=== PATIENT | male | born 1945 | race African-American/Black ===

== ENCOUNTER 2017-02-15 02:48 | Inpatient (IN) ==
[2017-02-15 04:00] LABS: Basophils % 0.2 % (0.0-0.8); Eosinophils % 0.7 % (0.00-10.9); Hemoglobin 9.5 GM/DL (14.0-18.0); Immature Granulocytes % 4.2 %; Immature Granulocytes Absolute 0.17 #; Mean Corpuscular HGB Conc 36.5 GM/DL (32-36); Mean Corpuscular Hemoglobin 26 PG (27-34); Mean Corpuscular Volume 71.2 FL (87-102); Mean Platelet Volume 9.6 FL (9.6-12.0); Monocytes # 0.5 10*3/uL (0.11-0.8); Monocytes % 11.8 % (1.7-12.7); Neutrophils # 1.4 10*3/uL (1.4-7.4); Neutrophils % 34.1 % (38.7-73.9); Platelet Count 114 T/CUMM (130-400); Red Blood Count 3.65 MC/CUMM (3.8-5.5); Red Cell Distribution Width 14.6 % (9.3-17.3); White Blood Count 4.1 T/CUMM (4-12)
[2017-02-15 04:11] LABS: INR 1.7; PT Patient Result 17.4 SECS
[2017-02-15 04:24] LABS: Alanine Aminotransferase 31 U/L (16-61); Albumin 2.8 G/DL (3.4-5.0); Alkaline Phosphatase 173 U/L (45-117); Amylase 188 U/L (25-115); Aspartate Amino Transferase 42 U/L (0-37); Blood Urea Nitrogen 47 MG/DL (7-18); Calcium 8.3 MG/DL (8.5-10.1); Glucose 90 MG/DL (74-106); Osmolality,Calculated 249.5 MOS/KG (273-304); Total Protein 6.4 G/DL (6.4-8.3); Troponin I Only < 0.015 NG/ML (0.00-0.045)
[2017-02-15 04:28] LABS: Sodium 118 MMOL/L (136-145)
[2017-02-15 04:57] LABS: Band Neutrophils 1 % (0-10); Eosinophils 3 % (0-10); Lymphocytes 57 % (20-55); Platelet Estimate Decreased; Segmented Neutrophils 32 % (50-85); Total Cells Counted 100
[2017-02-15 04:58] LABS: Microcytosis 2+
[2017-02-15 05:01] LABS: Partial Thromboplastin Time 41.7 SECS (0-40)
[2017-02-15] MEDS ORDERED: CALCIUM CHLORIDE 1,000 MG/10 ML SYRINGE IV ONE ×2 (07:18→07:27)
[2017-02-15] MEDS ORDERED: POTASSIUM CHLORIDE 20 MEQ TABLET PO ONE ×4 (07:18→12:02)
[2017-02-15] MEDS ORDERED: SODIUM CHLORIDE 0.9% 1,000 ML IV SCH (07:18)
[2017-02-15 08:08] LABS: Folate 22.9 NG/ML (5.4-24.0)
[2017-02-15 08:28] LABS: Free T4 (Free Thyroxine) 1.76 NG/DL (0.76-1.46); Magnesium 1.8 MG/DL (1.8-2.4)
[2017-02-15 08:30] LABS: Lactic Acid 1.4 MMOL/L (0.4-2.0)
[2017-02-15 08:31] LABS: Hemoglobin 9.6 GM/DL (14.0-18.0)
[2017-02-15 08:42] LABS: % Iron Saturation 38.5 % (18-50)
[2017-02-15 08:57] LABS: Magnesium 1.7 MG/DL (1.8-2.4); Risk Ratio 2.55; VLDL CHOLESTEROL 17.8 MG/DL
[2017-02-15] MEDS ORDERED: PANTOPRAZOLE 40 MG VIAL IV ONE (09:15)
[2017-02-15] MEDS ORDERED: CARVEDILOL 3.125 MG TABLET ONE (09:15)
[2017-02-15] MEDS ORDERED: DOCUSATE SODIUM 100 MG CAPSULE ONE (09:15)
[2017-02-15] MEDS: PANTOPRAZOLE 40 MG VIAL IV SCH (09:20)
[2017-02-15] MEDS: CARVEDILOL 3.125 MG TABLET PO SCH ×2 (09:20→21:15)
[2017-02-15] MEDS: ISOSORBIDE MONONITRATE 60 MG TABLET PO SCH (09:20)
[2017-02-15] MEDS: DOCUSATE SODIUM 100 MG CAPSULE PO SCH ×2 (09:20→21:15)
[2017-02-15] MEDS: PRAVASTATIN 40 MG TABLET PO SCH (09:30)
[2017-02-15] MEDS: LEVOTHYROXINE 75 MCG TABLET PO SCH (09:30)
[2017-02-15 10:27] LABS: Apearance,Urine CLEAR (Clear); Bacteria,Urine Occasional /HPF (Few); Bilirubin,Urine Negative (Negative); Blood, Urine Small mg/dL (Negative); Glucose,Urine (UA) Negative (Negative); Ketones,Urine Negative (Negative); Mucus,Urine Occasional /LPF (Occasional); Nitrite,Urine Negative (Negative); Protein,Urine Negative; RBC,Urine 8 /HPF (0-4); Urine Color Straw (Yellow); Urine Specific Gravity 1.004 (1.001-1.035); Urine Urobilinogen < 2.0 EU/DL (0.2-1.0); WBC,Urine 1 /HPF (0-6)
[2017-02-15] MEDS ORDERED: MAGNESIUM SULF RIDER 4 GM in PREMIX 1 EACH IV ONE (18:20)
[2017-02-15] MEDS ORDERED: FUROSEMIDE 20 MG/2 ML VIAL IV ONE (18:20)
[2017-02-15 20:10] LABS: Hematocrit 28.6 VOL% (42.0-52.0); Hemoglobin 10.4 GM/DL (14.0-18.0)
[2017-02-16 04:47] LABS: Basophils % 0.4 % (0.0-0.8); Eosinophils % 0.2 % (0.00-10.9); Hematocrit 29.7 VOL% (42.0-52.0); Hemoglobin 10.5 GM/DL (14.0-18.0); Immature Granulocytes % 5.3 %; Immature Granulocytes Absolute 0.28 #; Lymphocytes # 1.7 10*3/uL (1.4-4.0); Lymphocytes % 31.9 % (21.2-54.2); Mean Corpuscular HGB Conc 35.4 GM/DL (32-36); Mean Corpuscular Hemoglobin 26 PG (27-34); Mean Platelet Volume 9.6 FL (9.6-12.0); Monocytes # 0.6 10*3/uL (0.11-0.8); NRBC # 0.02 10*3/uL; Neutrophils # 2.6 10*3/uL (1.4-7.4); Neutrophils % 50.2 % (38.7-73.9); Platelet Count 137 T/CUMM (130-400); Red Blood Count 4.07 MC/CUMM (3.8-5.5); White Blood Count 5.3 T/CUMM (4-12)
[2017-02-16 05:18] LABS: Calcium 9.2 MG/DL (8.5-10.1); Magnesium 3.1 MG/DL (1.8-2.4); Potassium 3.8 MMOL/L (3.5-5.1)
[2017-02-16 05:22] LABS: Albumin 3.1 G/DL (3.4-5.0); Bilirubin,Total 1.3 MG/DL (0.2-1.0); Calcium 9.3 MG/DL (8.5-10.1); Osmolality,Calculated 253.2 MOS/KG (273-304); Potassium 3.6 MMOL/L (3.5-5.1); Total Protein 6.5 G/DL (6.4-8.3)
[2017-02-16 05:25] LABS: Osmolality,Calculated 255.2 MOS/KG (273-304)
[2017-02-16 05:50] LABS: Band Neutrophils 3 % (0-10); Lymphocytes 32 % (20-55); Metamyelocytes 2 %; Segmented Neutrophils 53 % (50-85); Total Cells Counted 100
[2017-02-16 05:51] LABS: Anisocytosis 1+; Platelet Estimate Decreased
[2017-02-16 05:55] LABS: Microcytosis 1+
[2017-02-16 06:10] LABS: Hepatitis A Ab IgM Quant 0.12 Index; Hepatitis A Ab IgM Result Negative (Negative); Hepatitis B Core IgM Quant 0.43 Index; Hepatitis B Core IgM Result Negative (Negative); Hepatitis B Surface Ag Quant 0.11 Index; Hepatitis B Surface Ag Result Negative (Negative); Hepatitis C Virus Ab Quant 0.02 Index; Hepatitis C Virus Ab Result Negative (Negative)
[2017-02-16] MEDS: ISOSORBIDE MONONITRATE 60 MG TABLET PO SCH (08:53)
[2017-02-16] MEDS: CARVEDILOL 3.125 MG TABLET PO SCH ×2 (08:53→20:47)
[2017-02-16] MEDS: DOCUSATE SODIUM 100 MG CAPSULE PO SCH ×2 (08:54→20:47)
[2017-02-16] MEDS: PANTOPRAZOLE 40 MG VIAL IV SCH (08:54)
[2017-02-16] MEDS: PRAVASTATIN 40 MG TABLET PO SCH (08:54)
[2017-02-16] MEDS: LEVOTHYROXINE 75 MCG TABLET PO SCH (08:54)
[2017-02-16] MEDS ORDERED: SODIUM CHLORIDE 3% INJ 500 ML IV SCH (14:30)
[2017-02-16 22:11] LABS: Calcium 8.5 MG/DL (8.5-10.1); Osmolality,Calculated 257.6 MOS/KG (273-304); Potassium 3.9 MMOL/L (3.5-5.1)
[2017-02-17 04:56] LABS: Basophils % 0.3 % (0.0-0.8); Eosinophils % 0.6 % (0.00-10.9); Hematocrit 24.9 VOL% (42.0-52.0); Immature Granulocytes % 3.7 %; Immature Granulocytes Absolute 0.12 #; Lymphocytes # 1.3 10*3/uL (1.4-4.0); Lymphocytes % 39.8 % (21.2-54.2); Mean Corpuscular HGB Conc 36.1 GM/DL (32-36); Mean Corpuscular Hemoglobin 26 PG (27-34); Mean Corpuscular Volume 72.4 FL (87-102); Mean Platelet Volume 9.9 FL (9.6-12.0); Monocytes # 0.5 10*3/uL (0.11-0.8); Monocytes % 16.5 % (1.7-12.7); Neutrophils # 1.3 10*3/uL (1.4-7.4); Neutrophils % 39.1 % (38.7-73.9); Platelet Count 110 T/CUMM (130-400); Red Blood Count 3.44 MC/CUMM (3.8-5.5); Red Cell Distribution Width 15.2 % (9.3-17.3); White Blood Count 3.3 T/CUMM (4-12)
[2017-02-17 05:19] LABS: Band Neutrophils 9 % (0-10); Eosinophils 1 % (0-10); Lymphocytes 29 % (20-55); Segmented Neutrophils 52 % (50-85); Total Cells Counted 100
[2017-02-17 05:20] LABS: Calcium 8.3 MG/DL (8.5-10.1); Osmolality,Calculated 262.1 MOS/KG (273-304); Potassium 3.1 MMOL/L (3.5-5.1)
[2017-02-17] MEDS: PANTOPRAZOLE 40 MG VIAL IV SCH (10:10)
[2017-02-17] MEDS: ISOSORBIDE MONONITRATE 60 MG TABLET PO SCH (10:11)
[2017-02-17] MEDS: LEVOTHYROXINE 75 MCG TABLET PO SCH (10:11)
[2017-02-17] MEDS: CARVEDILOL 3.125 MG TABLET PO SCH ×2 (10:11→21:27)
[2017-02-17] MEDS: PRAVASTATIN 40 MG TABLET PO SCH (10:11)
[2017-02-17] MEDS: DOCUSATE SODIUM 100 MG CAPSULE PO SCH ×2 (10:11→21:27)
[2017-02-17] MEDS: SPIRONOLACTONE 25 MG TABLET PO SCH (13:52)
[2017-02-18 06:57] LABS: Calcium 8.6 MG/DL (8.5-10.1); Osmolality,Calculated 262.2 MOS/KG (273-304); Potassium 3.3 MMOL/L (3.5-5.1)
[2017-02-18] MEDS: LEVOTHYROXINE 75 MCG TABLET PO SCH (08:27)
[2017-02-18] MEDS: SPIRONOLACTONE 25 MG TABLET PO SCH (08:27)
[2017-02-18] MEDS: ISOSORBIDE MONONITRATE 60 MG TABLET PO SCH (08:27)
[2017-02-18] MEDS: PRAVASTATIN 40 MG TABLET PO SCH (08:27)
[2017-02-18] MEDS: CARVEDILOL 3.125 MG TABLET PO SCH ×2 (08:28→21:10)
[2017-02-18] MEDS: PANTOPRAZOLE 40 MG VIAL IV SCH (08:28)
[2017-02-18] MEDS: DOCUSATE SODIUM 100 MG CAPSULE PO SCH ×3 (08:32→21:10)
[2017-02-18] MEDS: POTASSIUM CHLORIDE 20 MEQ TABLET PO SCH ×3 (10:59→18:50)
[2017-02-19] MEDS: MORPHINE 2 MG/1 ML SYRINGE IV PRN (00:02)
[2017-02-19 05:49] LABS: Basophils % 0.4 % (0.0-0.8); Eosinophils % 0.6 % (0.00-10.9); Hematocrit 27.3 VOL% (42.0-52.0); Hemoglobin 9.6 GM/DL (14.0-18.0); Immature Granulocytes % 5.3 %; Immature Granulocytes Absolute 0.27 #; Lymphocytes # 1.3 10*3/uL (1.4-4.0); Lymphocytes % 25.3 % (21.2-54.2); Mean Corpuscular HGB Conc 35.2 GM/DL (32-36); Mean Corpuscular Hemoglobin 26 PG (27-34); Mean Corpuscular Volume 74.8 FL (87-102); Monocytes # 0.7 10*3/uL (0.11-0.8); Monocytes % 14.5 % (1.7-12.7); Neutrophils # 2.7 10*3/uL (1.4-7.4); Neutrophils % 53.9 % (38.7-73.9); Platelet Count 126 T/CUMM (130-400); Red Blood Count 3.65 MC/CUMM (3.8-5.5); Red Cell Distribution Width 15.8 % (9.3-17.3); White Blood Count 5.1 T/CUMM (4-12)
[2017-02-19 06:15] LABS: Calcium 8.5 MG/DL (8.5-10.1); Magnesium 2.3 MG/DL (1.8-2.4); Osmolality,Calculated 264.4 MOS/KG (273-304); Potassium 5.1 MMOL/L (3.5-5.1)
[2017-02-19 06:21] LABS: Band Neutrophils 2 % (0-10); Lymphocytes 27 % (20-55); Segmented Neutrophils 61 % (50-85); Total Cells Counted 100
[2017-02-19 06:22] LABS: Hypochromasia 1+; Microcytosis 1+; Platelet Estimate Adequate
[2017-02-19] MEDS: SPIRONOLACTONE 25 MG TABLET PO SCH (09:21)
[2017-02-19] MEDS: ISOSORBIDE MONONITRATE 60 MG TABLET PO SCH (09:22)
[2017-02-19] MEDS: CARVEDILOL 3.125 MG TABLET PO SCH ×2 (09:22→21:29)
[2017-02-19] MEDS: PANTOPRAZOLE 40 MG VIAL IV SCH (09:22)
[2017-02-19] MEDS: LEVOTHYROXINE 75 MCG TABLET PO SCH (09:23)
[2017-02-19] MEDS: DOCUSATE SODIUM 100 MG CAPSULE PO SCH ×2 (09:23→21:23)
[2017-02-19] MEDS: PRAVASTATIN 40 MG TABLET PO SCH (09:23)
[2017-02-19] MEDS ORDERED: SODIUM CHLORIDE 0.9% 500 ML IV SCH (13:00)
[2017-02-20 05:20] LABS: Basophils % 0.3 % (0.0-0.8); Eosinophils # 0.1 10*3/uL (0.0-0.87); Eosinophils % 1.6 % (0.00-10.9); Hemoglobin 9.7 GM/DL (14.0-18.0); Immature Granulocytes % 4.8 %; Immature Granulocytes Absolute 0.29 #; Lymphocytes # 2.1 10*3/uL (1.4-4.0); Lymphocytes % 33.8 % (21.2-54.2); Mean Corpuscular HGB Conc 34.6 GM/DL (32-36); Mean Corpuscular Hemoglobin 26 PG (27-34); Mean Corpuscular Volume 75.9 FL (87-102); Mean Platelet Volume 10.3 FL (9.6-12.0); Monocytes # 0.8 10*3/uL (0.11-0.8); Monocytes % 12.8 % (1.7-12.7); Neutrophils # 2.8 10*3/uL (1.4-7.4); Neutrophils % 46.7 % (38.7-73.9); Platelet Count 139 T/CUMM (130-400); Red Blood Count 3.69 MC/CUMM (3.8-5.5); White Blood Count 6.1 T/CUMM (4-12)
[2017-02-20 05:48] LABS: Calcium 8.7 MG/DL (8.5-10.1); Magnesium 2.5 MG/DL (1.8-2.4); Osmolality,Calculated 260.6 MOS/KG (273-304); Potassium 5.3 MMOL/L (3.5-5.1)
[2017-02-20] MEDS: DOCUSATE SODIUM 100 MG CAPSULE PO SCH ×2 (10:06→21:26)
[2017-02-20] MEDS: CARVEDILOL 3.125 MG TABLET PO SCH ×2 (10:06→21:26)
[2017-02-20] MEDS: PRAVASTATIN 40 MG TABLET PO SCH (10:06)
[2017-02-20] MEDS: LEVOTHYROXINE 75 MCG TABLET PO SCH (10:07)
[2017-02-20] MEDS: ONDANSETRON 4 MG/2 ML VIAL IV PRN ×2 (15:26→22:55)
[2017-02-20] MEDS: MORPHINE 2 MG/1 ML SYRINGE IV PRN (15:27)
[2017-02-20] MEDS: ALUMINUM/MAGNES/SIMETH MAX STR 30 ML UDCUP PO PRN (23:00)
[2017-02-21] MEDS: ALUMINUM/MAGNES/SIMETH MAX STR 30 ML UDCUP PO PRN ×2 (05:24→15:35)
[2017-02-21 07:20] LABS: Basophils % 0.2 % (0.0-0.8); Eosinophils # 0.1 10*3/uL (0.0-0.87); Eosinophils % 1.4 % (0.00-10.9); Hematocrit 25.6 VOL% (42.0-52.0); Hemoglobin 9.1 GM/DL (14.0-18.0); Immature Granulocytes % 5.2 %; Lymphocytes # 1.6 10*3/uL (1.4-4.0); Lymphocytes % 28.4 % (21.2-54.2); Mean Corpuscular HGB Conc 35.5 GM/DL (32-36); Mean Corpuscular Hemoglobin 27 PG (27-34); Mean Corpuscular Volume 75.1 FL (87-102); Mean Platelet Volume 9.9 FL (9.6-12.0); Monocytes # 0.8 10*3/uL (0.11-0.8); NRBC # 0.02 10*3/uL; Neutrophils # 2.9 10*3/uL (1.4-7.4); Neutrophils % 50.8 % (38.7-73.9); Platelet Count 131 T/CUMM (130-400); Red Blood Count 3.41 MC/CUMM (3.8-5.5); Red Cell Distribution Width 16.3 % (9.3-17.3); White Blood Count 5.7 T/CUMM (4-12)
[2017-02-21 07:44] LABS: Eosinophils 2 % (0-10); Giant Platelets Few; Hypochromasia 1+; Lymphocytes 26 % (20-55); Platelet Estimate Normal; Segmented Neutrophils 59 % (50-85); Total Cells Counted 100
[2017-02-21 07:45] LABS: Microcytosis Slight
[2017-02-21 07:53] LABS: Calcium 9.1 MG/DL (8.5-10.1); Magnesium 2.2 MG/DL (1.8-2.4); Osmolality,Calculated 264.5 MOS/KG (273-304); Potassium 5.4 MMOL/L (3.5-5.1)
[2017-02-21] MEDS: PRAVASTATIN 40 MG TABLET PO SCH (10:02)
[2017-02-21] MEDS: LEVOTHYROXINE 75 MCG TABLET PO SCH (10:02)
[2017-02-21] MEDS: DOCUSATE SODIUM 100 MG CAPSULE PO SCH ×2 (10:02→21:18)
[2017-02-21] MEDS: CARVEDILOL 3.125 MG TABLET PO SCH ×2 (10:03→21:16)
[2017-02-21] MEDS: SODIUM POLYSTYRENE SULFATE 15 GM/60 ML BOTTLE PO ONE ×2 (16:00→16:27)
[2017-02-22] MEDS: ALUMINUM/MAGNES/SIMETH MAX STR 30 ML UDCUP PO PRN ×2 (01:40→11:12)
[2017-02-22] MEDS ORDERED: PROPOFOL 200 MG/20 ML VIAL IV ONE (03:57)
[2017-02-22] MEDS ORDERED: PHENYLEPHRINE 1 MG/10 ML SYRINGE IV ONE (03:57)
[2017-02-22] MEDS ORDERED: LIDOCAINE 2% 5 ML VIAL ONE (03:57)
[2017-02-22 05:42] LABS: Basophils % 0.3 % (0.0-0.8); Eosinophils # 0.1 10*3/uL (0.0-0.87); Eosinophils % 1.4 % (0.00-10.9); Hematocrit 26.7 VOL% (42.0-52.0); Hemoglobin 9.3 GM/DL (14.0-18.0); Immature Granulocytes Absolute 0.14 #; Lymphocytes # 1.8 10*3/uL (1.4-4.0); Lymphocytes % 26.1 % (21.2-54.2); Mean Corpuscular HGB Conc 34.8 GM/DL (32-36); Mean Corpuscular Hemoglobin 27 PG (27-34); Mean Corpuscular Volume 76.7 FL (87-102); Mean Platelet Volume 10.1 FL (9.6-12.0); Neutrophils # 3.9 10*3/uL (1.4-7.4); Neutrophils % 56.2 % (38.7-73.9); Platelet Count 149 T/CUMM (130-400); Red Blood Count 3.48 MC/CUMM (3.8-5.5); Red Cell Distribution Width 17.1 % (9.3-17.3)
[2017-02-22 06:20] LABS: Calcium 9.3 MG/DL (8.5-10.1); Magnesium 2.2 MG/DL (1.8-2.4); Osmolality,Calculated 276.5 MOS/KG (273-304); Potassium 4.1 MMOL/L (3.5-5.1)
[2017-02-22] MEDS: CARVEDILOL 3.125 MG TABLET PO SCH (09:25)
[2017-02-22] MEDS: BISACODYL 5 MG TABLET PO SCH ×2 (09:38→17:21)
[2017-02-22] MEDS: DOCUSATE SODIUM 100 MG CAPSULE PO SCH (09:39)
[2017-02-22] MEDS: LEVOTHYROXINE 75 MCG TABLET PO SCH (09:39)
[2017-02-22] MEDS: PRAVASTATIN 40 MG TABLET PO SCH (09:40)
[2017-02-22] MEDS: METOCLOPRAMIDE 10 MG/2 ML VIAL IV SCH ×2 (11:14→18:18)
[2017-02-22] MEDS: ONDANSETRON 4 MG/2 ML VIAL IV PRN (13:00)
[2017-02-22 15:32] LABS: Calcium 8.9 MG/DL (8.5-10.1); Osmolality,Calculated 276.5 MOS/KG (273-304); Potassium 4.3 MMOL/L (3.5-5.1)
[2017-02-22] MEDS ORDERED: POLYETHYLENE GLYCOL 3350/ELECTROLYTES 4,000 ML BOTTLE PEG ONE (17:00)
[2017-02-22 17:09] LABS: Total Protein,Body Fluid 2.4 G/DL
[2017-02-22 17:18] LABS: Glucose,Pleural Fluid 94 MG/DL
[2017-02-22] MEDS ORDERED: TOLVAPTAN 15 MG TABLET PO ONE (17:47)
[2017-02-22 19:10] LABS: Lymphocytes,Pleural Fluid 34 %; Monocytes,Pleural Fluid 29 %; Neutrophils,Pleural Fluid 37 %; RBC,Pleural Fluid 26774 T/CUMM
[2017-02-22 23:53] LABS: Troponin I Only 0.035 NG/ML (0.00-0.045)
[2017-02-23 03:44] LABS: Basophils % 0.1 % (0.0-0.8); Hematocrit 29.9 VOL% (42.0-52.0); Hemoglobin 9.8 GM/DL (14.0-18.0); Immature Granulocytes % 2.8 %; Immature Granulocytes Absolute 0.31 #; Lymphocytes # 0.9 10*3/uL (1.4-4.0); Lymphocytes % 7.6 % (21.2-54.2); Mean Corpuscular HGB Conc 32.8 GM/DL (32-36); Mean Corpuscular Hemoglobin 26 PG (27-34); Mean Corpuscular Volume 79.9 FL (87-102); Mean Platelet Volume 9.9 FL (9.6-12.0); Monocytes # 0.8 10*3/uL (0.11-0.8); Monocytes % 7.5 % (1.7-12.7); NRBC # 0.03 10*3/uL; Neutrophils # 9.2 10*3/uL (1.4-7.4); Platelet Count 124 T/CUMM (130-400); Red Blood Count 3.74 MC/CUMM (3.8-5.5); Red Cell Distribution Width 17.6 % (9.3-17.3); White Blood Count 11.3 T/CUMM (4-12)
[2017-02-23 04:16] LABS: Calcium 8.8 MG/DL (8.5-10.1); Magnesium 2.2 MG/DL (1.8-2.4); Osmolality,Calculated 281.2 MOS/KG (273-304); Potassium 4.3 MMOL/L (3.5-5.1)
[2017-02-23] MEDS: METOCLOPRAMIDE 10 MG/2 ML VIAL IV SCH ×2 (05:44)
[2017-02-23] MEDS: DOCUSATE SODIUM 100 MG CAPSULE PO SCH ×3 (07:21→20:18)
[2017-02-23] MEDS: BISACODYL 5 MG TABLET PO SCH (07:22)
[2017-02-23] MEDS: CARVEDILOL 3.125 MG TABLET PO SCH ×3 (07:22→20:18)
[2017-02-23] MEDS ORDERED: LEVOFLOXACIN INJ 500 MG in PREMIX 1 EACH IV SCH (09:00)
[2017-02-23] MEDS: LEVOTHYROXINE 75 MCG TABLET PO SCH (10:23)
[2017-02-23] MEDS: PRAVASTATIN 40 MG TABLET PO SCH (10:23)
[2017-02-23] MEDS ORDERED: METOCLOPRAMIDE 10 MG/2 ML VIAL IV SCH (12:00)
[2017-02-23] MEDS: METOCLOPRAMIDE 10 MG/10 ML UDCUP PO SCH ×2 (16:54→20:19)
[2017-02-23] MEDS: FLUCONAZOLE 100 MG TABLET PO SCH (18:53)
[2017-02-24 05:51] LABS: Eosinophils % 0.3 % (0.00-10.9); Hematocrit 25.6 VOL% (42.0-52.0); Hemoglobin 8.6 GM/DL (14.0-18.0); Immature Granulocytes % 1.8 %; Immature Granulocytes Absolute 0.11 #; Lymphocytes # 1.1 10*3/uL (1.4-4.0); Lymphocytes % 17.6 % (21.2-54.2); Mean Corpuscular HGB Conc 33.6 GM/DL (32-36); Mean Corpuscular Hemoglobin 27 PG (27-34); Mean Corpuscular Volume 79.3 FL (87-102); Mean Platelet Volume 9.5 FL (9.6-12.0); Monocytes # 0.7 10*3/uL (0.11-0.8); Monocytes % 12.3 % (1.7-12.7); Neutrophils # 4.1 10*3/uL (1.4-7.4); Platelet Count 108 T/CUMM (130-400); Red Blood Count 3.23 MC/CUMM (3.8-5.5); Red Cell Distribution Width 18.6 % (9.3-17.3)
[2017-02-24 06:43] LABS: Calcium 8.6 MG/DL (8.5-10.1); Osmolality,Calculated 283.5 MOS/KG (273-304); Potassium 3.1 MMOL/L (3.5-5.1)
[2017-02-24] MEDS: LEVOTHYROXINE 75 MCG TABLET PO SCH (08:54)
[2017-02-24] MEDS: METOCLOPRAMIDE 10 MG/10 ML UDCUP PO SCH ×4 (08:54→22:36)
[2017-02-24] MEDS: PRAVASTATIN 40 MG TABLET PO SCH (08:54)
[2017-02-24] MEDS: FLUCONAZOLE 100 MG TABLET PO SCH (08:55)
[2017-02-24] MEDS: CARVEDILOL 3.125 MG TABLET PO SCH ×2 (08:55→22:36)
[2017-02-24] MEDS ORDERED: LEVOFLOXACIN INJ 250 MG in PREMIX 1 EACH IV SCH (09:00)
[2017-02-24] MEDS: DOCUSATE SODIUM 100 MG CAPSULE PO SCH ×2 (10:04→22:35)
[2017-02-24] MEDS: PANTOPRAZOLE 40 MG TABLET PO SCH ×2 (12:18→22:22)
[2017-02-24] MEDS: AMOXICILLIN 50 MG/ML 150 ML/BOTTLE PO SCH ×2 (12:18→22:27)
[2017-02-24] MEDS: CLARITHROMYCIN 500 MG TABLET PO SCH ×2 (12:18→22:21)
[2017-02-24] MEDS: metroNIDAZOLE 500 MG TABLET PO SCH ×2 (12:18→22:22)
[2017-02-25 05:09] LABS: Basophils % 0.2 % (0.0-0.8); Eosinophils % 0.5 % (0.00-10.9); Hematocrit 28.5 VOL% (42.0-52.0); Hemoglobin 9.3 GM/DL (14.0-18.0); Immature Granulocytes % 2.3 %; Immature Granulocytes Absolute 0.13 #; Lymphocytes # 1.5 10*3/uL (1.4-4.0); Mean Corpuscular HGB Conc 32.6 GM/DL (32-36); Mean Corpuscular Hemoglobin 26 PG (27-34); Monocytes # 0.8 10*3/uL (0.11-0.8); Monocytes % 13.7 % (1.7-12.7); NRBC # 0.02 10*3/uL; Neutrophils # 3.1 10*3/uL (1.4-7.4); Neutrophils % 56.3 % (38.7-73.9); Platelet Count 109 T/CUMM (130-400); Red Blood Count 3.52 MC/CUMM (3.8-5.5); Red Cell Distribution Width 18.7 % (9.3-17.3); White Blood Count 5.6 T/CUMM (4-12)
[2017-02-25 05:25] LABS: Calcium 8.1 MG/DL (8.5-10.1); Osmolality,Calculated 278.8 MOS/KG (273-304); Potassium 3.1 MMOL/L (3.5-5.1)
[2017-02-25] MEDS: METOCLOPRAMIDE 10 MG/10 ML UDCUP PO SCH ×3 (08:27→18:32)
[2017-02-25] MEDS: CLARITHROMYCIN 500 MG TABLET PO SCH ×2 (08:27→21:45)
[2017-02-25] MEDS: LEVOTHYROXINE 75 MCG TABLET PO SCH (08:27)
[2017-02-25] MEDS: DOCUSATE SODIUM 100 MG CAPSULE PO SCH (08:28)
[2017-02-25] MEDS: AMOXICILLIN 50 MG/ML 150 ML/BOTTLE PO SCH ×2 (08:28→21:58)
[2017-02-25] MEDS: PRAVASTATIN 40 MG TABLET PO SCH (08:28)
[2017-02-25] MEDS: CARVEDILOL 3.125 MG TABLET PO SCH (08:28)
[2017-02-25] MEDS: POTASSIUM CHLORIDE 20 MEQ TABLET PO SCH (08:28)
[2017-02-25] MEDS: PANTOPRAZOLE 40 MG TABLET PO SCH ×2 (08:28→21:44)
[2017-02-25] MEDS: metroNIDAZOLE 500 MG TABLET PO SCH ×2 (08:28→21:44)
[2017-02-25] MEDS: FUROSEMIDE 40 MG TABLET PO SCH (08:37)
[2017-02-25] MEDS: LEVOFLOXACIN INJ 750 MG in PREMIX 1 EACH IV SCH (08:37)
[2017-02-25] MEDS: clonazePAM 0.5 MG TABLET PO PRN (21:45)
[2017-02-25] MEDS ORDERED: FUROSEMIDE 40 MG/4 ML VIAL IV ONE (22:00)
[2017-02-26] MEDS: CARVEDILOL 3.125 MG TABLET PO SCH ×3 (00:01→21:15)
[2017-02-26] MEDS: DOCUSATE SODIUM 100 MG CAPSULE PO SCH ×3 (00:01→21:15)
[2017-02-26] MEDS: METOCLOPRAMIDE 10 MG/10 ML UDCUP PO SCH ×5 (00:01→21:15)
[2017-02-26 03:26] LABS: Basophils % 0.3 % (0.0-0.8); Eosinophils % 0.5 % (0.00-10.9); Hemoglobin 9.9 GM/DL (14.0-18.0); Immature Granulocytes Absolute 0.54 #; Lymphocytes # 1.3 10*3/uL (1.4-4.0); Lymphocytes % 16.3 % (21.2-54.2); Mean Corpuscular Hemoglobin 27 PG (27-34); Mean Corpuscular Volume 80.6 FL (87-102); Mean Platelet Volume 9.7 FL (9.6-12.0); Monocytes % 12.4 % (1.7-12.7); NRBC # 0.03 10*3/uL; Neutrophils # 4.9 10*3/uL (1.4-7.4); Neutrophils % 63.5 % (38.7-73.9); Platelet Count 100 T/CUMM (130-400); Red Blood Count 3.72 MC/CUMM (3.8-5.5); Red Cell Distribution Width 17.7 % (9.3-17.3); White Blood Count 7.7 T/CUMM (4-12)
[2017-02-26 04:02] LABS: Calcium 8.2 MG/DL (8.5-10.1); Osmolality,Calculated 273.4 MOS/KG (273-304); Potassium 4.3 MMOL/L (3.5-5.1)
[2017-02-26 04:46] LABS: Band Neutrophils 1 % (0-10); Lymphocytes 17 % (20-55); Platelet Estimate Decreased; Segmented Neutrophils 70 % (50-85); Total Cells Counted 100
[2017-02-26] MEDS: LEVOFLOXACIN INJ 750 MG in PREMIX 1 EACH IV SCH (08:58)
[2017-02-26] MEDS: PANTOPRAZOLE 40 MG TABLET PO SCH ×2 (08:59→21:24)
[2017-02-26] MEDS: POTASSIUM CHLORIDE 20 MEQ TABLET PO SCH (08:59)
[2017-02-26] MEDS: LEVOTHYROXINE 75 MCG TABLET PO SCH (08:59)
[2017-02-26] MEDS: CLARITHROMYCIN 500 MG TABLET PO SCH ×2 (08:59→21:13)
[2017-02-26] MEDS: FUROSEMIDE 40 MG TABLET PO SCH (09:00)
[2017-02-26] MEDS: PRAVASTATIN 40 MG TABLET PO SCH (09:00)
[2017-02-26] MEDS: metroNIDAZOLE 500 MG TABLET PO SCH ×2 (09:00→21:15)
[2017-02-26] MEDS: AMOXICILLIN 50 MG/ML 150 ML/BOTTLE PO SCH ×2 (09:07→21:24)
[2017-02-26] MEDS: clonazePAM 0.5 MG TABLET PO PRN (21:16)
[2017-02-27 05:10] LABS: Basophils % 0.3 % (0.0-0.8); Eosinophils % 0.7 % (0.00-10.9); Hematocrit 29.2 VOL% (42.0-52.0); Immature Granulocytes % 7.7 %; Immature Granulocytes Absolute 0.45 #; Lymphocytes # 1.3 10*3/uL (1.4-4.0); Lymphocytes % 22.2 % (21.2-54.2); Mean Corpuscular HGB Conc 34.2 GM/DL (32-36); Mean Corpuscular Hemoglobin 27 PG (27-34); Mean Corpuscular Volume 78.3 FL (87-102); Mean Platelet Volume 9.6 FL (9.6-12.0); Monocytes # 0.8 10*3/uL (0.11-0.8); Monocytes % 13.7 % (1.7-12.7); Neutrophils # 3.3 10*3/uL (1.4-7.4); Neutrophils % 55.4 % (38.7-73.9); Platelet Count 108 T/CUMM (130-400); Red Blood Count 3.73 MC/CUMM (3.8-5.5); Red Cell Distribution Width 17.7 % (9.3-17.3); White Blood Count 5.9 T/CUMM (4-12)
[2017-02-27 05:34] LABS: Calcium 8.3 MG/DL (8.5-10.1); Osmolality,Calculated 289.3 MOS/KG (273-304); Potassium 4.7 MMOL/L (3.5-5.1)
[2017-02-27 05:43] LABS: Hypochromasia 1+; Lymphocytes 21 % (20-55); Microcytosis 1+; Myelocytes 1 %; Platelet Estimate Adequate; Segmented Neutrophils 69 % (50-85); Total Cells Counted 100
[2017-02-27] MEDS: METOCLOPRAMIDE 10 MG/10 ML UDCUP PO SCH ×3 (11:22→21:23)
[2017-02-27] MEDS: AMOXICILLIN 50 MG/ML 150 ML/BOTTLE PO SCH ×2 (11:23→21:40)
[2017-02-27] MEDS: DOCUSATE SODIUM 100 MG CAPSULE PO SCH ×2 (11:24→21:24)
[2017-02-27] MEDS: CARVEDILOL 3.125 MG TABLET PO SCH ×2 (11:25→21:24)
[2017-02-27] MEDS: PANTOPRAZOLE 40 MG TABLET PO SCH ×2 (11:25→21:24)
[2017-02-27] MEDS: FUROSEMIDE 40 MG TABLET PO SCH (11:26)
[2017-02-27] MEDS: LEVOTHYROXINE 75 MCG TABLET PO SCH (11:26)
[2017-02-27] MEDS: PRAVASTATIN 40 MG TABLET PO SCH (11:27)
[2017-02-27] MEDS: metroNIDAZOLE 500 MG TABLET PO SCH ×2 (11:27→21:23)
[2017-02-27] MEDS ORDERED: DIGOXIN 0.25 MG TABLET PO ONE ×2 (13:03→20:00)
[2017-02-27] MEDS: CLARITHROMYCIN 500 MG TABLET PO SCH ×2 (14:47→21:24)
[2017-02-27] MEDS: clonazePAM 0.5 MG TABLET PO PRN (22:59)
[2017-02-28] MEDS: METOCLOPRAMIDE 10 MG/10 ML UDCUP PO SCH ×5 (01:56→20:52)
[2017-02-28 07:33] LABS: Basophils % 0.2 % (0.0-0.8); Eosinophils # 0.1 10*3/uL (0.0-0.87); Eosinophils % 1.6 % (0.00-10.9); Hematocrit 28.4 VOL% (42.0-52.0); Hemoglobin 9.8 GM/DL (14.0-18.0); Immature Granulocytes % 6.2 %; Immature Granulocytes Absolute 0.34 #; Lymphocytes # 1.3 10*3/uL (1.4-4.0); Lymphocytes % 23.4 % (21.2-54.2); Mean Corpuscular HGB Conc 34.5 GM/DL (32-36); Mean Corpuscular Hemoglobin 27 PG (27-34); Mean Platelet Volume 9.3 FL (9.6-12.0); Monocytes # 0.9 10*3/uL (0.11-0.8); Monocytes % 15.9 % (1.7-12.7); Neutrophils # 2.9 10*3/uL (1.4-7.4); Neutrophils % 52.7 % (38.7-73.9); Platelet Count 107 T/CUMM (130-400); Red Blood Count 3.64 MC/CUMM (3.8-5.5); Red Cell Distribution Width 17.6 % (9.3-17.3); White Blood Count 5.5 T/CUMM (4-12)
[2017-02-28 08:10] LABS: Calcium 8.2 MG/DL (8.5-10.1); Osmolality,Calculated 280.1 MOS/KG (273-304); Potassium 4.3 MMOL/L (3.5-5.1)
[2017-02-28 08:19] LABS: Eosinophils 1 % (0-10); Hypochromasia 1+; Lymphocytes 19 % (20-55); Segmented Neutrophils 67 % (50-85); Total Cells Counted 100
[2017-02-28 08:20] LABS: Microcytosis 1+; Target Cells Slight
[2017-02-28 08:21] LABS: Platelet Estimate Decreased
[2017-02-28] MEDS: ASPIRIN EC 81 MG TABLET PO SCH (08:52)
[2017-02-28] MEDS: DOCUSATE SODIUM 100 MG CAPSULE PO SCH ×2 (08:52→20:52)
[2017-02-28] MEDS: metroNIDAZOLE 500 MG TABLET PO SCH ×2 (08:52→20:52)
[2017-02-28] MEDS: FUROSEMIDE 40 MG TABLET PO SCH (08:52)
[2017-02-28] MEDS: CARVEDILOL 3.125 MG TABLET PO SCH ×2 (08:52→20:52)
[2017-02-28] MEDS: LEVOTHYROXINE 75 MCG TABLET PO SCH (08:52)
[2017-02-28] MEDS: PRAVASTATIN 40 MG TABLET PO SCH (08:52)
[2017-02-28] MEDS: CLARITHROMYCIN 500 MG TABLET PO SCH ×2 (08:52→20:52)
[2017-02-28] MEDS: PANTOPRAZOLE 40 MG TABLET PO SCH ×2 (08:52→20:52)
[2017-02-28] MEDS: AMOXICILLIN 50 MG/ML 150 ML/BOTTLE PO SCH ×2 (11:21→21:32)
[2017-02-28] MEDS: DIGOXIN 0.125 MG TABLET PO SCH (13:51)
[2017-03-01 05:14] LABS: Basophils % 0.2 % (0.0-0.8); Eosinophils # 0.1 10*3/uL (0.0-0.87); Eosinophils % 1.2 % (0.00-10.9); Hematocrit 30.3 VOL% (42.0-52.0); Hemoglobin 10.3 GM/DL (14.0-18.0); Immature Granulocytes % 5.5 %; Immature Granulocytes Absolute 0.32 #; Lymphocytes # 1.2 10*3/uL (1.4-4.0); Lymphocytes % 19.6 % (21.2-54.2); Mean Corpuscular Hemoglobin 27 PG (27-34); Mean Corpuscular Volume 79.1 FL (87-102); Mean Platelet Volume 9.3 FL (9.6-12.0); Monocytes # 0.8 10*3/uL (0.11-0.8); Monocytes % 13.3 % (1.7-12.7); Neutrophils # 3.5 10*3/uL (1.4-7.4); Neutrophils % 60.2 % (38.7-73.9); Platelet Count 104 T/CUMM (130-400); Red Blood Count 3.83 MC/CUMM (3.8-5.5); Red Cell Distribution Width 17.9 % (9.3-17.3); White Blood Count 5.9 T/CUMM (4-12)
[2017-03-01 05:37] LABS: Calcium 7.9 MG/DL (8.5-10.1); Magnesium 1.3 MG/DL (1.8-2.4); Osmolality,Calculated 285.4 MOS/KG (273-304)
[2017-03-01 05:43] LABS: Eosinophils 1 % (0-10); Giant Platelets Few; Hypochromasia 1+; Lymphocytes 15 % (20-55); Ovalocytes Slight; Platelet Estimate Decreased; Segmented Neutrophils 70 % (50-85); Total Cells Counted 100
[2017-03-01 05:44] LABS: Microcytosis Slight
[2017-03-01] MEDS: PRAVASTATIN 40 MG TABLET PO SCH (09:38)
[2017-03-01] MEDS: LEVOTHYROXINE 75 MCG TABLET PO SCH (09:38)
[2017-03-01] MEDS: PANTOPRAZOLE 40 MG TABLET PO SCH ×2 (09:38→21:35)
[2017-03-01] MEDS: FUROSEMIDE 40 MG TABLET PO SCH (09:38)
[2017-03-01] MEDS: ASPIRIN EC 81 MG TABLET PO SCH (09:38)
[2017-03-01] MEDS: DOCUSATE SODIUM 100 MG CAPSULE PO SCH ×2 (09:38→21:35)
[2017-03-01] MEDS: CLARITHROMYCIN 500 MG TABLET PO SCH ×2 (09:42→21:35)
[2017-03-01] MEDS: METOCLOPRAMIDE 10 MG/10 ML UDCUP PO SCH ×4 (09:44→21:35)
[2017-03-01] MEDS: metroNIDAZOLE 500 MG TABLET PO SCH ×2 (09:56→21:35)
[2017-03-01] MEDS: AMOXICILLIN 50 MG/ML 150 ML/BOTTLE PO SCH ×2 (09:57→21:35)
[2017-03-01] MEDS: CARVEDILOL 3.125 MG TABLET PO SCH ×2 (09:57→21:35)
[2017-03-01 10:53] LABS: Lymphocytes,Pleural Fluid 7 %; Monocytes,Pleural Fluid 4 %; Neutrophils,Pleural Fluid 89 %
[2017-03-01 10:56] LABS: RBC,Pleural Fluid 2231 T/CUMM
[2017-03-01] MEDS: DIGOXIN 0.125 MG TABLET PO SCH (12:08)
[2017-03-01 12:35] LABS: Total Protein,Body Fluid 2.6 G/DL
[2017-03-01] MEDS ORDERED: MAGNESIUM SULF RIDER 4 GM in PREMIX 1 EACH IV ONE (14:41)
[2017-03-01] MEDS ORDERED: POTASSIUM CHLORIDE 20 MEQ PACK PO ONE (14:42)
[2017-03-01 16:30] VITALS: BP 93/71
== END 2017-03-01 22:45 | disposition hospice, home (50) | DRG 640 ==
LOC: EDUNIT# → EDBD → N.ED 02:48 → SUATTDRO 03:57 → N.EDINP 03:57 → N.TELEN 15:57 → N.4E 02-18 16:17 → N.CC 02-26 16:59 → N.TELEN 02-28 18:15
PROVIDERS: ADMIT Internal Medicine; ATTEND Internal Medicine
PROC: IRTHORA (2017-02-22 15:17)